=== PATIENT | female | born 1960 | race Caucasian/White ===

== ENCOUNTER 2018-06-03 09:40 | Emergency (ER) | payer OTHER ==
[~2018-06-03] VITALS: Ht 175.3 cm; Wt 99.8 kg
[2018-06-03] MEDS ORDERED: BYDUREON P2 MG/0.65 INJECTION (10:00)
[2018-06-03] MEDS ORDERED: ATORVASTATIN CA40 MG PO (10:01)
[2018-06-03] MEDS ORDERED: HUMALOG100 UNIT/1 SUBQ (10:01)
[2018-06-03] MEDS ORDERED: XANAX 0.5 MG0.5 MG PO (10:01)
[2018-06-03] MEDS ORDERED: BASAGLAR K100 UNIT/1 INJECTION (10:01)
[2018-06-03] MEDS ORDERED: PROTONIX40 M1 PO (10:02)
[2018-06-03] MEDS ORDERED: ASPIR 8181 MG PO (10:02)
[2018-06-03] MEDS ORDERED: FLEXERIL PO (10:02)
[2018-06-03] MEDS ORDERED: REQUIP 1 MG TABL1 M1 PO (10:02)
[2018-06-03] MEDS ORDERED: LOPRESSOR50 PO (10:02)
[2018-06-03] MEDS ORDERED: ZALEPLON 10 MG10 M1 PO (10:03)
[2018-06-03] MEDS ORDERED: MAGOX 400400 MG PO (10:03)
[2018-06-03] MEDS ORDERED: OMEGA-31000 M1 PO (10:04)
[2018-06-03] MEDS ORDERED: FEOSOL45 M1 PO (10:04)
[2018-06-03] MEDS ORDERED: CRANBERRY200 MG PO (10:05)
[2018-06-03] MEDS ORDERED: VITAMIN D3400 UNI2 PO (10:05)
[2018-06-03] MEDS ORDERED: HYDROCODON-ACE1 EAC5 PO (10:06)
[2018-06-03] MEDS ORDERED: PREDNISONE 20 M20 M1 PO (10:40)
[2018-06-03 10:49] VITALS: BP 154/64
== END 2018-06-03 10:49 | disposition home or self-care (01) ==
LOC: M.ERS 09:40
DX: R21 Rash and other nonspecific skin eruption (principal); T78.49XA Other allergy, initial encounter; I10 Essential (primary) hypertension; E11.9 Type 2 diabetes mellitus without complications; Z88.8 Allergy status to other drugs, medicaments and biological substances; Z88.1 Allergy status to other antibiotic agents; Z79.4 Long term (current) use of insulin; X58.XXXA Exposure to other specified factors, initial encounter

== ENCOUNTER 2018-11-12 09:48 | Inpatient (IN) | payer OTHER ==
[~2018-11-12] VITALS: Ht 172.7 cm; Wt 95.7 kg
[~2018-11-12 09:48] MED LIST: ASPIR 8181 MG PO; ATORVASTATIN CA40 MG PO; BASAGLAR K100 UNIT/1 INJECTION; BYDUREON P2 MG/0.65 INJECTION; CRANBERRY200 MG PO; FEOSOL45 M1 PO; FLEXERIL PO; HUMALOG100 UNIT/1 SUBQ; HYDROCODON-ACE1 EAC5 PO; LOPRESSOR50 PO; MAGOX 400400 MG PO; OMEGA-31000 M1 PO; PREDNISONE 20 M20 M1 PO; PROTONIX40 M1 PO; REQUIP 1 MG TABL1 M1 PO; VITAMIN D3400 UNI2 PO; XANAX 0.5 MG0.5 MG PO; ZALEPLON 10 MG10 M1 PO
--- NOTE | 2018-11-12 10:28 | NUR ---
PT AWARE OF PLAN OF CARE. WILL CONT TO MONITOR.
[2018-11-12 10:39] LABS: ABSOLUTE BASOPHILS 0.1 thou/uL (0.0-0.2); ABSOLUTE EOSINOPHILS 0.4 thou/uL (0.0-0.7); ABSOLUTE LYMPHOCYTES 3.4 thou/uL (0.8-5.3); ABSOLUTE MONOCYTES 1.1 thou/uL (0.0-1.2); ABSOLUTE NEUTROPHILS 6.2 thou/uL (1.6-8.1); BASOPHILS 0.8 %; EOSINOPHILS 3.4 %; HEMATOCRIT 34.5 % (37.0-47.0); HEMOGLOBIN 11.6 gm/dL (12.0-15.0); LYMPHOCYTES 30.2 %; MCH 27.6 pg (26.0-34.0); MCHC 33.6 g/dL (28.0-37.0); MCV 82.2 fL (80.0-100.0); MONOCYTES 9.6 %; MPV 7.4 fl. (7.2-11.1); NUCLEATED RBCS 0 /100WBC; PLATELET COUNT* 249 thou/uL (150-400); RDW-CV 16.4 % (10.5-14.5); WBC 11.1 thou/uL (4.0-11.0)
[2018-11-12 10:44] LABS: URINE BILIRUBIN NEGATIVE (Negative); URINE BLOOD 1+ (Negative); URINE CLARITY SL CLOUDY; URINE COLOR YELLOW; URINE GLUCOSE-RANDOM NEGATIVE (Negative); URINE KETONES NEGATIVE (Negative); URINE LEUKOCYTES-REFLEX 3+ (Negative); URINE NITRITE-REFLEX NEGATIVE (Negative); URINE PROTEIN 1+ (Negative); URINE UROBILINOGEN 0.2 E.U./dl (0.2-1.0)
[2018-11-12 10:47] LABS: CALCIUM 8.7 mg/dL (8.5-10.1); CREATININE 1.3 mg/dL (0.6-1.3); POTASSIUM 3.2 mmol/L (3.5-5.1)
[2018-11-12] MEDS ORDERED: BYDUREON B2 MG/0.85 INJECTION (10:47)
[2018-11-12 10:48] LABS: SQUAMOUS 0-3 Few /LPF (0-3); URINE RBC >20 Many /HPF (0-2); URINE WBC-REFLEX >25 Many /HPF (0-5)
[2018-11-12 10:49] LABS: CASTS None Seen /LPF (None Seen); CRYSTALS None Seen /LPF (None Seen); MUCUS None Seen strn/LPF (None Seen)
[2018-11-12 10:52] LABS: ALBUMIN 3.1 g/dL (3.4-5.0); TOTAL BILIRUBIN 0.8 mg/dL (<0.1-1.0); TOTAL PROTEIN 7.8 g/dL (6.4-8.2)
[2018-11-12 12:35] VITALS: BP 141/67
[2018-11-12 13:00] VITALS: BP 157/68
[2018-11-12 13:15] VITALS: BP 153/64
[2018-11-12 13:30] VITALS: BP 148/66
--- NOTE | 2018-11-12 18:00 | NUR ---
PATIENT ARRIVED TO UNIT AT APPROX 1300. ALERT AND ORIENTED X4. ADMISSION HISTORY AND ASSESSMENT COMPLETED AND CHARTED. VSS ON ROOM AIR. PATIENT HAD COMPLAINTS OF PAIN, MANAGED WITH IV MEDICATION. NO COMPLAINTS OF NAUSEA OR SOA. FLUIDS INFUSED ORDERED. ACCUCHECK DONE AND INSULIN GIVEN PER ORDERS. PODIATRY, DR GILES, CONSULTED AND WILL DO SURGERY TOMORROW AFTERNOON. WOUND PHOTO TAKEN AND PLACED IN CHART. PATIENT UP AD BEN IN THE ROOM AND TO THE BATHROOM. INSTRUCTED TO USE CALL LIGHT FOR NEEDS, PLACED IT IN RACXH AND PATIENT USES APPROPRIATELY. HOURLY ROUNDS COMPLETED. NURSING WILL CONTINUE TO MONITOR.
[2018-11-12 19:55] VITALS: BP 155/66
--- NOTE | 2018-11-13 04:14 | NUR ---
ASSUMED CARE AT START OF SHIFT PT RESTED WELL AFTER RECIEVING IV PAIN MEDICATION, REMAIN NPO FOR AM SURGERY OF TOE REMOVEL, DISCUSSED PLAN OF CARE VERBALIZED UNDERSTANDIING AND AGREEABLE, WILL REPORT CHANGES OR ABNORMAL FINDINGS
[2018-11-13 07:30] VITALS: BP 137/60
--- NOTE | 2018-11-13 10:43 | NUR ---
WOUND CARE NOTE: CONSULT RECEIVED FOR TOE INFECTION/RT SECOND TOE FRACTURE. PLANS FOR PATIENT TO HAVE AMPUTATION OF THIS TOE TODAY. WILL SIGN OFF. PLEASE RECONSULT IF ANY NEEDS ARISE.
--- NOTE | 2018-11-13 15:24 | EKG ---
[place] [address] ELECTROCARDIOGRAM REPORT Name: MEDARDO LOGAN Room: [address] ADM IN M.R.#: [id number] Admission: 11/12/18 Attend Phys: Crystal Lambert MD Discharge: Date of : 56 Report #: [id number] THIS REPORT FOR: //name// [facility] Test Date: 2018-11-13 Test Time: 13:51:30 Pat Name: MEDARDO LOGAN Department: Room: [address] Gender: F Organizational Consultant: : 1960 Requested By: Alek Poole Order Number: [id number] Bonny MD: Enzo Mcgee Measurements Intervals [place] Rate: 66 P: 37 WV: 158 QRS: 46 QRSD: 98 T: 35 QT: 443 QTc: 465 Interpretive Statements Sinus rhythm No previous ECG available for comparison Electronically Signed On 11-13-2018 15:24:32 INTERCHANGE AGENT by Enzo Mcgee [email or web address] <ELECTRONICALLY SIGNED> By: Enzo Mcgee MD, [facility] 11/13/18 1524 1351 1351 Enzo Mcgee MD, FACC /EPI
--- NOTE | 2018-11-13 17:43 | NUR ---
ASSUMED CARE OF PATIENT AT APPROX 0730. ALERT AND ORIENTED 4X. ASSESSMENT COMPLETED AND CHARTED. VSS ON ROOM AIR. NO COMPLAINTS OF NAUSEA OR SOA. PAIN MANAGED WITH MEDICATION. PATIENT TO PACU AT 1445 AND RETURNED AT 1645. RIGHT 2ND TOE AMPUTATION DONE. NWB ON RIGHT LOWER EXTREMITY. PATIENT REMAINED ALERT AND ORIENTED AND VITALS REMAINED STABLE. NO COMPLAINTS OF PAIN SINCE ARRIVAL BACK TO UNIT. PATIENT WILL BE UP WITH GAIT BELT AND WALKER WITH NWB STATUS. FAL LPRECAUTIONS IN PLACE. CALL LIGHT WITHIN REACH AND USES APPROPRIATELY. HOURLY ROUNDS COMPLETED WHILE ON UNIT. NURSING WILL CONTINUE TO MONITOR.
[2018-11-13 19:06] LABS: GLYCOHEMOGLOBIN (HGB A1C) 5.9 % (4.8-5.6)
[2018-11-13 20:00] VITALS: BP 144/64
[2018-11-14 00:28] VITALS: BP 127/54
[2018-11-14 04:18] VITALS: BP 156/63
[2018-11-14 05:02] LABS: HEMATOCRIT 29.1 % (37.0-47.0); MCH 28.5 pg (26.0-34.0); MCHC 34.3 g/dL (28.0-37.0); MPV 7.9 fl. (7.2-11.1); RBC 3.5 mil/uL (4.20-5.00); RDW-CV 16.4 % (10.5-14.5); WBC 4.3 thou/uL (4.0-11.0)
[2018-11-14 05:29] LABS: ALBUMIN 2.5 g/dL (3.4-5.0); CALCIUM 8.1 mg/dL (8.5-10.1); CREATININE 1.1 mg/dL (0.6-1.3); MAGNESIUM 1.4 mg/dL (1.8-2.4); POTASSIUM 3.8 mmol/L (3.5-5.1); TOTAL BILIRUBIN 0.6 mg/dL (<0.1-1.0); TOTAL PROTEIN 6.5 g/dL (6.4-8.2)
--- NOTE | 2018-11-14 05:49 | NUR ---
Alert and oriented x 4. Rt foot bulky dresing clean,dry and intact. She has followed nonweight bearing to rt foot very well. She up and pivot over to bedside commode. She did have a large BM last evening. She had pain meds x 2 this shift. Vitals are stable. She's on R/A. She has slept well this shift.
[2018-11-14 08:00] VITALS: BP 140/54
--- NOTE | 2018-11-14 13:09 | CON ---
[address] [address] CONSULTATION Name: MEDARDO LOGAN Room: [address] IN M.R.#: [id number] Admission: 11/12/18 Attend Phys: Crystal Lambert MD Discharge: Date of : 56 Report #: [id number] THIS REPORT FOR: //name// CC: Crystal Caban DATE OF SERVICE: 11/13/2018 ATTENDING PHYSICIAN: Dr. Lambert. REASON FOR EVALUATION: Chronic osteomyelitis involving the right second toe. HISTORY OF PRESENT ILLNESS: Chart reviewed, the patient examined. This is a 58-year-old female with diabetes mellitus diagnosed roughly 4 years ago, apparently has some degree of peripheral neuropathy, was unaware of any injury, but developed pain and inflammatory changes noted in particular in the second toe roughly 2 weeks prior. She apparently did have some degree of systemic illness with sweats and perhaps low-grade temperature elevations. She notes her blood sugars were not markedly abnormal. Denies significant pulmonary or gastrointestinal related complaints. Was evaluated including imaging which raised question of some fracture versus bone destruction. She is seen postop second toe amputation. She has been empirically placed on ceftriaxone and vancomycin. Cultures are pending. Initial blood cultures were negative at 24 hours. She denies significant amount of pain at this point. ALLERGIES: LORAZEPAM, CEPHALEXIN, WHICH SHE DESCRIBED CAUSES YEAST RELATED COMPLICATIONS. CURRENT MEDICATIONS: Include atorvastatin, cholecalciferol, fish oil, aspirin, ceftriaxone, ropinirole, vancomycin, cyclobenzaprine, insulin, metoprolol, alprazolam, pantoprazole. PAST MEDICAL HISTORY: Diabetes mellitus type 2, insulin requiring; history of hypertension. SOCIAL HISTORY: Nonsmoker, no ethanol. FAMILY HISTORY: Noncontributory. REVIEW OF SYSTEMS: Ten point review of systems otherwise unremarkable with the exception of noted above in history of present illness. PHYSICAL EXAMINATION: GENERAL: She is pleasant, alert, cooperative. She is slightly lethargic, although she appears to be generally lucid, in mild distress, appears to be [place] [address] CONSULTATION Name: MEDARDO LOGAN Room: [address]#: [id number] Admission: 11/12/18 Attend Phys: Crystal Lambert MD Discharge: Date of : 56 Report #: [id number] VITAL SIGNS: Temperature 98.2, pulse 78, respirations 18, blood pressure 137/60. SKIN: Warm, dry, no rashes. HEENT: Normocephalic. Extraocular muscles intact. Oropharynx without lesion. NECK: Supple. LUNGS: Clear to auscultation. HEART: Regular. I do not appreciate any murmur. ABDOMEN: Soft, nontender, nondistended, no peritoneal signs. EXTREMITIES: She has got a dressing on the right foot. GENITOURINARY: Deferred. RECTAL: Deferred. LABORATORY DATA: MRI of the foot preop showed nonenhancing soft tissue abscess or phlegmon within the distal tip of the second toe extending to plantar margin of the distal phalanx, multifocal cortical destruction and marrow signal alteration involving the second distal phalanx as well as the first proximal and distal phalanx, there is question of a traumatic fracture, sliding irregularity of the second metatarsal head, there is question of a chronic [place] infarction, reactive edema. Blood cultures are sterile thus far. Arterial Doppler was otherwise unremarkable on the right. Lactic acid 1.3. Electrolytes: Sodium 139, potassium 3.2, chloride 106, bicarb is 25, BUN and creatinine 18 and 1.3, glucose of 58. LFTs unremarkable. Albumin of 3.1, total protein 7.8, estimated GFR of 42. Urinalysis did show some marked pyuria and moderate bacteriuria. Blood cultures sterile thus far. Urine culture is pending as are operative cultures. ASSESSMENT: Suspected chronic osteomyelitis in the distal right second toe, is post amputation. Continue empiric antimicrobial therapy. Await results. Likely has a genitourinary tract infection as well, so a combination gram-positive, gram-negative coverage seems in order. To see how she does clinically over the course of the next 24-48 hours, await results. Continue wound care as per Dr. Poole. <ELECTRONICALLY SIGNED> By: Quirino Bennett MD 11/14/18 1309 1716 1810Jodannie Bennett MD /nt
--- NOTE | 2018-11-14 15:14 | NUR ---
SOLAR DESIGNER/INSTALLER SPOKE TO THE PATIENT TO DISCUSS HER HOME SITUATION, DISCHARGE PLANNING, AND TO INFORM OF THE ROLE OF CM. PATIENT ALERT, ORIENTED, AND INDEPENDENT WITH ADL'S. PATIENT WORKS AND DRIVES. PATIENT RESIDES AT HOME ALONE. PATIENT USES 0 DME. PATIENT HAS NO HX OF HH OR SNF. PATIENT INFORMS THAT SHE PLANS TO RETURN TO HER DTR'S HOME AT D/C IF SHE NEEDS ASSISTANCE WITH CARES. SPOKE TO THE PATIENT ABOUT THE POSSIBILITY OF NEEDING I.V. ABT'S AT D/C. PATIENT INFORMS THAT SHE WILL BE ABLE TO DO THE I.V. ABT INFUSIONS AT HER DTR'S HOME IF NEEDED. D/C FIELD TECHNICIAN SPOKE TO [employer] TO INFORM OF THE NEED TO CHECK PATIENT'S BENEFITS, AND FAXED THE PATIENT'S FACESHEET. D/C FIELD TECHNICIAN AWAITING A RETURN CALL FROM [employer] TO DISCUSS PATIENT'S INSURANCE COVERAGE FOR HOME INFUSIONS AND POSSIBLE CO-PAY AMOUNT. CM WILL REMAIN AVIALABEL TO ASSIST AND FOLLOW NEEDED.
[2018-11-14 16:21] VITALS: BP 122/47
--- NOTE | 2018-11-14 17:21 | NUR ---
CONSULTED TO PLACE PICC FOR NETWORK CONTROL SUPERVISOR ATB THERAPY. SPOKE WITH PT REGUARDING RISK AND BENEFIT. VOICED UNDERSTANDING AND DENIES QUESTIONS. CONSENT SIGNED. RIGHT UPPER ARM ASSESSED WITH ULTRASOUND. BASILIC VEIN IDENTIFIED ADN NOTED TO BE WUIDLEY PATENT. USING UTRASOUND AND MAX BARRIER PRECAUTIONS SINGLE LUMAN POWER PICC PLACED. LINE TRIMMED AT 47CM AND ADVANCED 46CM. GOOD BRIOSK BLOOD RETURN NOTED AND FLUSHED WITH EASY. TIP CONFERMATION PER RASHEED 3CG. LINE SECURED AND RELEASED FOR USE.
--- NOTE | 2018-11-14 18:53 | NUR ---
ALERT AND ORIENTED X4. UP WITH ASSIST X1 WITH WALKER AND GAIT BELT. PICC LINE PLACED TODAY, PATENT AND SALINE LOCKED. PAIN BEING MANAGED WITH PO PAIN MEDICATION. DENIES NAUESA. TOLERATING DIET. DRESSING ON LEFT FOOT IS C/D/I. VSS ON ROOM AIR. HOURLY ROUNDS HAVE BEEN MAINTAINED THROUGHOUT SHIFT. VSS ON ROOM AIR. CALL LIGHT IS WITHIN REACH. NURSING WILL CONTINUE TO MONITOR.
--- NOTE | 2018-11-14 19:55 | NUR ---
RN REVIEWED AND AGREES WITH STUDENT NURSES CHARTING
[2018-11-14 20:00] VITALS: BP 132/69
[2018-11-15] VITALS (7 sets, daily range): BP systolic 116–126; BP diastolic 40–58
--- NOTE | 2018-11-15 04:47 | NUR ---
Alert and oriented x 4. Bulky dressing to rt foot dry and intact, she is doing well pivoting over to the bedside commode, voiding well. She is on scheduled trmadol which has helped with pain control. Rt upper arm PICC line is working well,flushes well and has good draw back. Orders for RT and OT eval today. She has slept well this shift.
[2018-11-15 09:37] LABS: CALCIUM 8.6 mg/dL (8.5-10.1); CREATININE 1.2 mg/dL (0.6-1.3); MAGNESIUM 1.6 mg/dL (1.8-2.4)
[2018-11-15] MEDS ORDERED: HYDROCODON-ACE1 EAC7 PO (11:14)
[2018-11-15] MEDS ORDERED: TRAMADOL 50 MG50 MG PO (11:14)
[2018-11-15] MEDS ORDERED: ONDANSETRON HCL4 M2 PO (11:14)
--- NOTE | 2018-11-15 16:13 | NUR ---
CLOCKMAKER APPRENTICE SPOKE TO THE PATIENT TO DISCUSS DISCHARGE PLANNING NEEDS. PATIENT HOPEFUL TO D/C TODAY HOME WITH HH SERVICES, AND PLANS TO DO THE ABT INFUSIONS AT HER HOME. PATIENT INITIALLY WANTED TO DO THE INFUSIONS AT HER DTRS HOME HOWEVER THE HH DID NOT SERVICE THAT AREA. D/C COMPUTER SYSTEMS INFORMATION DIRECTOR ATTEMPED TO FIND ALTERNATE HH WITH [facility], [facility], [facility], [facility], [facility], [facility], AND [facility]. ALL WERE EITHER NOT IN-NETWORK, OUT OF SERVICE AREA, OR UNABLE TO START CARE UNITL NEXT SUNDAY. ON-CALL HH TO VISIT PATIENT AT HER HOME TO PROVIDE WOUND CARE AND ASSIST WITH IV ABT. NATHANIEL WITH [facility] DID ON-SITE VISIT WITH THE PATIENT AND DTR FOR ABT TEACHING. ABT'S TO BE DELIVERED TO THE PATIENT'S DTR'S HOME TONIGHT. PATIENT IN AGREEMENT WITH THE PLAN. P.T. PROVIDED PATIENT WITH A DONATED WALKER TO TAKE HOME AT D/C, THE PATIENT WAS UNABLE TO PURCHASE WALKER FROM [facility], [place] D/T INABILITY TO [place] CO-PAY AMOUNT. PATIENT TO D/C TODAY WITH TRANSPORT PROVIDED BY HER DTR [facility] ([phone]). CM WILL REMAIN AVAILABLE TO ASSIST AND FOLLOW NEEDED. [facility] [phone] ON-CALL HOME HEALTH ([facility]) [phone]
--- NOTE | 2018-11-15 17:25 | NUR ---
PATIENT LEFT UNIT AT 1645. ALERT AND ORIENTED X4. UP WITH STAND BY ASSIST X1 WITH WALKER AND GAIT BELT. PICC IN PLACE AT DISCHARGE. PAIN BEING MANAGED WITH PO PAIN MEDICATION. DENIES NAUSEA. DRESSING IS C/D/I. WEIGHT BEARING TOLERATED IN SURGICAL SHOE. ATTENDED PHYSICAL THERAPY THIS SHIFT. TOLERATING DIET. ALL PERSONAL ITEMS LEFT WITH PATIENT. DISCHARGE INSTRCTIONS, FOLLOW UP INFORMATION, PRESCRIPTIONS, AND NEW MEDICATION INFORMATION SENT WITH PATIENT. VSS ON ROOM AIR. HOURLY ROUNDS HAVE BEEN MAINTAINED THROUGHOUT SHIFT. LEFT WITH DAUGHTER VIA CAR.
--- NOTE | 2018-11-15 19:01 | NUR ---
RN HAS REVIEWED AND AGREES WITH STUDENT NURSES CHARTING.
--- NOTE | 2018-11-16 08:02 | OP ---
[address] [address] OPERATIVE REPORT Name: LOGANCARLTONBLAYNE Zafar Room: [address] M.R.#: [id number] Admission: 11/12/18 Attend Phys: Crystal Lambert MD Discharge: 11/15/18 Date of : 56 Report #: [id number] THIS REPORT FOR: //name// CC: Crystal Caban DATE OF SERVICE: 11/13/2018 SURGEON: Alek Poole DPM PREOPERATIVE DIAGNOSES: Osteomyelitis, right second digit, with nonhealing ulceration. POSTOPERATIVE DIAGNOSES: Osteomyelitis, right second digit, with nonhealing ulceration. PROCEDURE: 1. Amputation, right second toe at MTP joint with primary closure. 2. Incision and drainage, right foot. 3. Skin plasty, left foot. ANESTHESIA: General LMA. INJECTABLES: 30 mL of a 1:1 mixture of 0.5% Marcaine plain and 1% lidocaine plain. ESTIMATED BLOOD LOSS: Minimal. HEMOSTASIS: Right ankle pneumatic tourniquet at 250 mmHg. SUTURES: 3-0 nylon. COMPLICATIONS: None CULTURES: 1. Bone, left second digit, aerobic and anaerobic. 2. Soft tissue, left second digit, aerobic and anaerobic. PATHOLOGY: Left second toe. DESCRIPTION OF PROCEDURE: The patient was brought to the OR and placed on the table supine with induction of general LMA anesthesia. A well-padded right ankle tourniquet was placed. A local anesthetic block was given, and the extremity was prepped and draped aseptically. After exsanguination and inflation of the tourniquet, a tennis racquet incision was created circumferentially around the right second toe. Layered anatomic dissection [place] [id number] OPERATIVE REPORT Name: MEDARDO LOGAN Room: [address] IN [facility].#: [id number] Admission: 11/12/18 Attend Phys: Crystal Lambert MD Discharge: 11/15/18 Date of : 56 Report #: [id number] utilized to disarticulate the toe at the second MTP joint, electrocautery was utilized for hemostasis. The intraoperative wound was debulked of tendons and soft tissue to facilitate closure. There were no signs of necrosis or infection at the level of the second MTP joint or second metatarsal head. I remodeled the skin and it was closed primarily with 3-0 nylon in simple interrupted fashion. The tourniquet was deflated with normal vascular return. A sterile compressive bandage with Betadine-soaked Adaptic, 4 x 4s, ABD, Kerlix and Coban were applied. A portion of bone was sent for aerobic and anaerobic cultures, as well as associated soft tissue from the ulceration. The second toe was then sent for gross pathology. The patient left the OR with no complications noted. <ELECTRONICALLY SIGNED> By: Alek Poole DPM 11/16/18 0802 0741 0752Dbob Poole DPM /nano
--- NOTE | 2018-11-16 08:02 | CON ---
[address] [address] CONSULTATION Name: LOGANCARLTONBLAYNE Zafar Room: [address] IN M.R.#: [id number] Admission: 11/12/18 Attend Phys: Crystal Lambert MD Discharge: 11/15/18 Date of : 56 Report #: [id number] THIS REPORT FOR: //name// CC: Crystal Caban Primary Care Physician DATE OF SERVICE: 11/12/2018 REASON FOR CONSULTATION: Ulceration, right distal second toe with osteomyelitis. CHIEF COMPLAINT AND HISTORY OF PRESENT ILLNESS: The patient is a 58-year-old female admitted to the Emergency Room today for worsening infection of the right second toe. She has type 2 diabetes mellitus with peripheral neuropathy. She first noticed a wound to the right distal toe roughly 1 week ago, that has become increasingly red, swollen and painful, with some drainage at the distal aspect. She has been afebrile. Denies fevers, chills, nausea or malaise. She says her blood glucoses typically run in the mid-150s. She denies trauma to the toe; she thinks it may have rubbed a blister or callus from the end of her shoe. She had aerobic and anaerobic swab cultures today, pending. She had foot radiographs, which show destruction of the terminal phalanx of the right second toe. There is an old fracture through the proximal phalanx of the right hallux. MRI was performed, report pending. Arterial Doppler ultrasound showed strong triphasic waveforms to both lower extremities, with no signs of focal velocity, elevation or stenosis. LABORATORY DATA: WBC is 11.1, RBC 4.20, hemoglobin 11.6, hematocrit 34.5 and platelets 249,000. BUN 18, creatinine 1.3 and glucose 58. Albumin 3.1. PHYSICAL EXAMINATION: The right second toe is extremely edematous and inflamed, with obvious deep tissue infection. There is an ulceration of the distal aspect of the second toe that probes down to the distal phalanx. There is scant serous drainage present. She has palpable dorsalis pedis and posterior tibial pulses bilaterally. There is advanced edema to the right lower extremity and dorsal foot from the cellulitis. She has a hallux extensus deformity to the right great toe, with no open wound or signs of infection to it. Toenails are dystrophic, without paronychia. No popliteal adenopathy to either extremity. No Homans' or Willis sign. IMPRESSION: Osteomyelitis, right second toe, distal phalanx, complicated by type 2 diabetes mellitus with peripheral neuropathy. PLAN: The patient requires surgical amputation [place] [address] CONSULTATION Name: MEDARDO LOGAN Room: [address] IN M.R.#: [id number] Admission: 11/12/18 Attend Phys: Crystal Lambert MD Discharge: 11/15/18 Date of : 56 Report #: [id number] perform the surgery tomorrow, n.p.o. past midnight. I will review MRI and culture results tomorrow. <ELECTRONICALLY SIGNED> By: Alek Poole DPM 11/16/18 0802 1729 [id number] Poole DPM /nt
--- NOTE | 2018-11-16 08:02 | CON ---
[address] [address] CONSULTATION Name: MEDARDO LOGAN Room: [address] IN M.R.#: [id number] Admission: 11/12/18 Attend Phys: Crystal Lambert MD Discharge: 11/15/18 Date of : 56 Report #: [id number] THIS REPORT FOR: //name// CC: Crystal Caban DATE OF SERVICE: 11/13/2018 CHIEF COMPLAINT: Follow up regarding osteomyelitis of the right second toe, distal phalanx, complicated by type 2 diabetes mellitus with peripheral neuropathy. HISTORY OF PRESENT ILLNESS: She had an MRI with contrast, which showed diffuse osteomyelitis to the distal phalanx with a secondary fracture due to osteolysis. There is also increased signal uptake to the proximal phalanx of the right hallux, likely secondary to traumatic fracture. Clinically, the patient does not have any wounds or inflammation to the area, although she does have a remote history of ulceration of the plantar medial aspect of the hallux. I feel this likely represents a remote fracture based on the x-ray, MRI and clinical findings. She has good appetite, relates decreased pain to the right foot. Blood cultures have no growth x 2. Wound culture from right second toe is pending. No new labs for review. PHYSICAL EXAMINATION: The right second toe was dressed with no bleed through or drainage. There is decreased swelling and inflammation at the dorsal aspect of the right foot. PLAN: I did not remove the bandage to examine the wound, since the patient is scheduled for digital amputation later this afternoon. I will plan amputation, right second toe with primary closure at the MTP joint. No surgical debridement or amputation is required to the right great toe, as there are no clinical signs of infection, and the bone pathology is almost certainly remote pathologic fracture. <ELECTRONICALLY SIGNED> By: Alek Poole DPM 11/16/18 0802 1250 1308Dajasmyne Poole DPM /nt
--- NOTE | 2018-11-18 13:08 | PATH ---
[address] [address] PATHOLOGY RPT PROCEDURE Name: MEDARDO LOGAN Room: [address] IN .R.#: [id number] Admission: 11/12/18 Date of : 56 Discharge: 11/15/18 Report #: [id number] Path Case #: [id number] [facility] Accession Number: [id number] . 01 Material submitted: . RIGHT SECOND TOE . 01 Clinical history: . Osteomyelitis second toe . 02 Diagnosis: Right second toe: - Benign toe with prominent defect in region of nonspecific ulceration, acute inflammation of soft tissues and osteomyelitis of underlying phalangeal bone. - Proximal disarticulation margin free of osteomyelitis. (SANDRA:alexander; 11/15/2018) MBKimberlee/11/15/2018 . 02 Electronically signed: . Richmond Barth MD, Pathologist NPI- [id number] . 01 Gross description: . The specimen is received in formalin, labeled "Medardo Logan, right second toe". Received is an amputated digit measuring 6.9 x 2.9 x 2.7 cm in greatest dimensions. The bone margin is smooth and concave in appearance, consistent with disarticulation. The bone and soft tissue margins are inked black. The nail is present displaying a light younger and grossly unremarkable appearance. The distal aspect of the specimen displays a circular defect measuring 1.5 x 1.2 cm which probes to a depth of 1.3 cm and exposes the underlying bone. The skin surrounding this defect is light younger and flaky in appearance. A full-thickness longitudinal cross-section is submitted in cassettes A1 through A3, from proximal to distal aspects, following decalcification. (CAA; 11/14/2018) QAC/QAC . 02 Pathologist provided ICD-10: L97.519, M86.8X7 . 02 CPT . 606898, 698745 Specimen Comment: A courtesy copy of this report has been sent to Specimen Comment: [phone], , . Specimen Comment: Report sent to Specimen Comment: A duplicate report has been generated [place] [address] PATHOLOGY RPT PROCEDURE Name: MEDARDO LOGAN Room: [address] IN M.R.#: [id number] Admission: 11/12/18 Date of : 56 Discharge: 11/15/18 Report #: [id number] Path Case #: [id number] Performed at: 01 [facility] [place] [address] [address], [place], [place] [address] MD Varun Dave MD Phone: [phone] Performed at: 02 [facility] [address], [place], [place] [address] MD Richmond Barth MD Phone: [phone]
--- NOTE | 2018-11-19 10:26 | NUR ---
POST DISCHARGE NOTE: D/C ANODE BUILDER CONTACTED BY NIYA WITH ON-CALL CARE SERVICES. NIYA INFORMS THAT THE HH HAS MADE MULTIPLE ATTEMPTS TO CONTACT THE PATIENT TO ARRANGE VISIT TO [facility]. APPOINTMENT HAD BEEN SET FOR SUNDAY, SUNDAY, AND SUNDAY TO ADMIT THE PATIENT FOR SERVICE AND WHEN THE RN ARRIVES AT THE PATIENT'S HOME SHE IS NOT AVIALABLE. AT THIS TIME ON-CALL HH IS UNABLE TO ADMIT THE PATIENT DUE TO THE PATIENT NOT BEING AVAILABLE DESPITE MULTIPLE ATTEMPTS TO CONTACT THE PATIENT. NIYA ALSO INFORMS THAT SHE HAD CONTACTED DR BOOKER'S OFFICE TO INFORM OF THIS INFO WELL. D/C ANODE BUILDER TO INFORM DR BOOKER OF THIS INFO. CM WILL REMAIN AVAILABLE TO ASSIST AND FOLLOW NEEDED.
== END 2018-11-15 16:45 | disposition home or self-care (01) | DRG 617 ==
LOC: M.ERS 09:48 → M.ORTHSURG 12:00 → M.TBA-ER 12:00 → M.ORTHSURG 12:12
PROVIDERS: Nurse Practitioner Family; ADMIT Internal Medicine
DX: E11.69 Type 2 diabetes mellitus with other specified complication (principal); N39.0 Urinary tract infection, site not specified; M84.478A Pathological fracture, left toe(s), initial encounter for fracture; M86.9 Osteomyelitis, unspecified; L03.115 Cellulitis of right lower limb; E44.1 Mild protein-calorie malnutrition; E11.628 Type 2 diabetes mellitus with other skin complications; I10 Essential (primary) hypertension; E11.42 Type 2 diabetes mellitus with diabetic polyneuropathy; Z88.8 Allergy status to other drugs, medicaments and biological substances; Z79.899 Other long term (current) drug therapy; Z68.32 Body mass index [BMI] 32.0-32.9, adult

== ENCOUNTER 2018-12-10 11:11 | Emergency (ER) | payer OTHER ==
[~2018-12-10] VITALS: Ht 175.3 cm; Wt 98.2 kg
[~2018-12-10 11:11] MED LIST changes: +BYDUREON B2 MG/0.85 INJECTION; +HYDROCODON-ACE1 EAC7 PO; +ONDANSETRON HCL4 M2 PO; +TRAMADOL 50 MG50 MG PO
[2018-12-10 11:42] LABS: URINE BILIRUBIN NEGATIVE (Negative); URINE BLOOD 2+ (Negative); URINE CLARITY CLEAR; URINE COLOR YELLOW; URINE GLUCOSE-RANDOM 1+ (Negative); URINE KETONES NEGATIVE (Negative); URINE LEUKOCYTES-REFLEX 1+ (Negative); URINE NITRITE-REFLEX NEGATIVE (Negative); URINE PROTEIN 1+ (Negative); URINE SPECIFIC GRAVITY 1.025 (1.005-1.030); URINE UROBILINOGEN 0.2 E.U./dl (0.2-1.0)
[2018-12-10 11:49] LABS: AMP/METHAMP Negative (Negative); BARBITURATES Negative (Negative); BENZODIAZEPINES POSITIVE (Negative); COCAINE Negative (Negative); METHADONE Negative (Negative); OPIATES Negative (Negative); PCP Negative (Negative); THC Negative (Negative)
[2018-12-10 11:53] LABS: SQUAMOUS 0-3 Few /LPF (0-3)
[2018-12-10 11:54] LABS: BACTERIA-REFLEX 1-9 Few /HPF (None Seen); CASTS None Seen /LPF (None Seen); CRYSTALS None Seen /LPF (None Seen); MUCUS 0-3 Light strn/LPF (None Seen); URINE RBC 3-10 Few /HPF (0-2); URINE WBC-REFLEX 6-15 Few /HPF (0-5)
[2018-12-10 12:21] LABS: ABSOLUTE BASOPHILS 0.1 thou/uL (0.0-0.2); ABSOLUTE EOSINOPHILS 0.3 thou/uL (0.0-0.7); ABSOLUTE LYMPHOCYTES 1.1 thou/uL (0.8-5.3); ABSOLUTE MONOCYTES 0.4 thou/uL (0.0-1.2); ABSOLUTE NEUTROPHILS 3.7 thou/uL (1.6-8.1); BASOPHILS 1.8 %; EOSINOPHILS 5.4 %; HEMATOCRIT 35.8 % (37.0-47.0); HEMOGLOBIN 12.1 gm/dL (12.0-15.0); LYMPHOCYTES 19.9 %; MCH 28.6 pg (26.0-34.0); MCHC 33.9 g/dL (28.0-37.0); MCV 84.2 fL (80.0-100.0); MONOCYTES 7.9 %; NUCLEATED RBCS 0 /100WBC; PLATELET COUNT* 141 thou/uL (150-400); RBC 4.24 mil/uL (4.20-5.00); RDW-CV 17.1 % (10.5-14.5); WBC 5.6 thou/uL (4.0-11.0)
[2018-12-10 12:27] LABS: CALCIUM 9.5 mg/dL (8.5-10.1); CREATININE 1.2 mg/dL (0.6-1.3); POTASSIUM 3.4 mmol/L (3.5-5.1)
[2018-12-10 12:32] LABS: ALBUMIN 3.3 g/dL (3.4-5.0); TOTAL BILIRUBIN 0.9 mg/dL (<0.1-1.0); TOTAL PROTEIN 8.2 g/dL (6.4-8.2)
[2018-12-10 13:45] VITALS: BP 151/89
[2018-12-10 23:09] LABS: GLYCOHEMOGLOBIN (HGB A1C) 6.9 % (4.8-5.6)
== END 2018-12-10 13:46 | disposition home or self-care (01) ==
LOC: M.ERS 11:11
PROVIDERS: Personal Emergency Response Attendant
DX: E11.65 Type 2 diabetes mellitus with hyperglycemia (principal); F32.9 Major depressive disorder, single episode, unspecified; I10 Essential (primary) hypertension; E78.5 Hyperlipidemia, unspecified; Z90.49 Acquired absence of other specified parts of digestive tract; Z98.890 Other specified postprocedural states; Z88.1 Allergy status to other antibiotic agents; Z88.8 Allergy status to other drugs, medicaments and biological substances

== ENCOUNTER 2018-12-21 09:22 | Emergency (ER) | payer OTHER ==
[~2018-12-21] VITALS: Ht 175.3 cm; Wt 99.8 kg
[2018-12-21] MEDS ORDERED: LEXAPRO20 MG PO (09:39)
[2018-12-21 11:39] VITALS: BP 119/50
== END 2018-12-21 11:41 | disposition home or self-care (01) ==
LOC: M.ERS 09:22
DX: T82.898A Other specified complication of vascular prosthetic devices, implants and grafts, initial encounter (principal); I10 Essential (primary) hypertension; E11.9 Type 2 diabetes mellitus without complications; E78.5 Hyperlipidemia, unspecified; Z98.890 Other specified postprocedural states; Z79.4 Long term (current) use of insulin; Z90.49 Acquired absence of other specified parts of digestive tract; Z88.1 Allergy status to other antibiotic agents; Z88.8 Allergy status to other drugs, medicaments and biological substances; Z89.421 Acquired absence of other right toe(s); Y84.8 Other medical procedures as the cause of abnormal reaction of the patient, or of later complication, without mention of misadventure at the time of the procedure; Y92.89 Other specified places as the place of occurrence of the external cause

== ENCOUNTER 2019-02-20 12:52 | Emergency (ER) | payer OTHER ==
[~2019-02-20] VITALS: Ht 175.3 cm; Wt 102.1 kg
[~2019-02-20 12:52] MED LIST changes: +LEXAPRO20 MG PO
[2019-02-20] MEDS ORDERED: LEXAPRO 10 MG T10 M1 PO (13:07)
[2019-02-20] MEDS ORDERED: ACYCLOVIR 800800 MG PO (13:21)
[2019-02-20] MEDS ORDERED: VISTARIL 25 MG25 M1 PO (13:21)
[2019-02-20 13:30] VITALS: BP 176/86
== END 2019-02-20 13:32 | disposition home or self-care (01) ==
LOC: M.ERS 12:52
DX: B02.9 Zoster without complications (principal); I10 Essential (primary) hypertension; E11.9 Type 2 diabetes mellitus without complications; E78.5 Hyperlipidemia, unspecified; F32.9 Major depressive disorder, single episode, unspecified; Z90.49 Acquired absence of other specified parts of digestive tract; Z98.890 Other specified postprocedural states; Z88.1 Allergy status to other antibiotic agents; Z88.8 Allergy status to other drugs, medicaments and biological substances

== ENCOUNTER 2019-04-20 15:55 | Inpatient (IN) | payer OTHER ==
[~2019-04-20] VITALS: Ht 152.4 cm; Wt 101.2 kg
[~2019-04-20 15:55] MED LIST changes: +ACYCLOVIR 800800 MG PO; +LEXAPRO 10 MG T10 M1 PO; +VISTARIL 25 MG25 M1 PO
[2019-04-20 16:03] VITALS: BP 202/89
[2019-04-20 16:17] LABS: URINE BILIRUBIN NEGATIVE (Negative); URINE BLOOD 3+ (Negative); URINE CLARITY SL CLOUDY; URINE COLOR YELLOW; URINE GLUCOSE-RANDOM 1+ (Negative); URINE KETONES NEGATIVE (Negative); URINE NITRITE-REFLEX NEGATIVE (Negative); URINE PROTEIN 2+ (Negative); URINE UROBILINOGEN 0.2 E.U./dl (0.2-1.0)
[2019-04-20 16:18] LABS: URINE LEUKOCYTES-REFLEX 3+ (Negative)
[2019-04-20 16:24] LABS: MUCUS None Seen strn/LPF (None Seen); SQUAMOUS 4-10 Moderate /LPF (0-3); WBC CLUMPS Few (None Seen)
[2019-04-20 16:25] LABS: URINE WBC-REFLEX >25 Many /HPF (0-5)
[2019-04-20 16:26] LABS: BACTERIA-REFLEX 1-9 Few /HPF (None Seen); CASTS None Seen /LPF (None Seen); CRYSTALS None Seen /LPF (None Seen)
[2019-04-20 16:39] LABS: ABSOLUTE EOSINOPHILS 0.1 thou/uL (0.0-0.7); ABSOLUTE MONOCYTES 0.3 thou/uL (0.0-1.2); ABSOLUTE NEUTROPHILS 2.8 thou/uL (1.6-8.1); BASOPHILS 1.1 %; EOSINOPHILS 2.1 %; HEMOGLOBIN 12.5 gm/dL (12.0-15.0); LYMPHOCYTES 24.1 %; MCH 29.1 pg (26.0-34.0); MCHC 34.6 g/dL (28.0-37.0); MONOCYTES 7.2 %; MPV 7.7 fl. (7.2-11.1); NUCLEATED RBCS 0 /100WBC; PLATELET COUNT* 119 thou/uL (150-400); POLYS 65.5 %; RBC 4.29 mil/uL (4.20-5.00); RDW-CV 15.5 % (10.5-14.5); WBC 4.3 thou/uL (4.0-11.0)
[2019-04-20 16:45] LABS: CALCIUM 8.5 mg/dL (8.5-10.1); POTASSIUM 3.4 mmol/L (3.5-5.1)
[2019-04-20 16:49] LABS: ALBUMIN 3.1 g/dL (3.4-5.0); TOTAL BILIRUBIN 1.1 mg/dL (<0.1-1.0); TOTAL PROTEIN 7.1 g/dL (6.4-8.2)
[2019-04-20 20:00] VITALS: BP 162/72
[2019-04-20 20:52] VITALS: BP 161/74
[2019-04-21 04:00] VITALS: BP 108/60; BP 195/79
[2019-04-21 08:00] VITALS: BP 173/78
[2019-04-21 19:40] VITALS: BP 162/79
[2019-04-22 03:46] VITALS: BP 106/64
[2019-04-22 05:23] LABS: ABSOLUTE LYMPHOCYTES 1.1 thou/uL (0.8-5.3); ABSOLUTE NEUTROPHILS 3.2 thou/uL (1.6-8.1); BASOPHILS 0.7 %; HEMOGLOBIN 11.4 gm/dL (12.0-15.0); PLATELET COUNT* 111 thou/uL (150-400)
[2019-04-22 05:28] LABS: ABSOLUTE EOSINOPHILS 0.2 thou/uL (0.0-0.7); ABSOLUTE MONOCYTES 0.4 thou/uL (0.0-1.2); EOSINOPHILS 3.2 %; LYMPHOCYTES 22.9 %; MCHC 34.5 g/dL (28.0-37.0); MCV 83.9 fL (80.0-100.0); MONOCYTES 8.2 %; MPV 7.9 fl. (7.2-11.1); NUCLEATED RBCS 0 /100WBC; RBC 3.93 mil/uL (4.20-5.00); RDW-CV 15.1 % (10.5-14.5); WBC 4.9 thou/uL (4.0-11.0)
[2019-04-22 05:31] LABS: CALCIUM 8.3 mg/dL (8.5-10.1); MAGNESIUM 1.4 mg/dL (1.8-2.4); POTASSIUM 3.8 mmol/L (3.5-5.1)
[2019-04-22 08:17] VITALS: BP 129/66
[2019-04-22 12:00] VITALS: BP 152/67
[2019-04-22 20:00] VITALS: BP 162/66
[2019-04-23 03:58] LABS: ABSOLUTE EOSINOPHILS 0.1 thou/uL (0.0-0.7); ABSOLUTE LYMPHOCYTES 1.1 thou/uL (0.8-5.3); ABSOLUTE MONOCYTES 0.4 thou/uL (0.0-1.2); ABSOLUTE NEUTROPHILS 2.8 thou/uL (1.6-8.1); BASOPHILS 0.8 %; EOSINOPHILS 2.7 %; HEMATOCRIT 31.1 % (37.0-47.0); HEMOGLOBIN 10.9 gm/dL (12.0-15.0); LYMPHOCYTES 24.7 %; MCH 29.5 pg (26.0-34.0); MCHC 35.1 g/dL (28.0-37.0); MCV 84.3 fL (80.0-100.0); MONOCYTES 9.2 %; MPV 8.4 fl. (7.2-11.1); NUCLEATED RBCS 0 /100WBC; PLATELET COUNT* 98 thou/uL (150-400); POLYS 62.6 %; RBC 3.69 mil/uL (4.20-5.00); RDW-CV 14.6 % (10.5-14.5); WBC 4.5 thou/uL (4.0-11.0)
[2019-04-23 04:11] LABS: CALCIUM 7.8 mg/dL (8.5-10.1); POTASSIUM 3.8 mmol/L (3.5-5.1)
[2019-04-23 07:40] VITALS: BP 163/66
[2019-04-23] MEDS ORDERED: BACTRIM DS TAB1 EACH PO (11:50)
[2019-04-23] MEDS ORDERED: HYDROCODON-ACE1 EAC7 PO (11:51)
[2019-04-23] MEDS ORDERED: DOK PLUS TABLE1 EACH PO (11:51)
[2019-04-23 13:43] VITALS: BP 163/66
== END 2019-04-23 14:30 | disposition home or self-care (01) | DRG 690 ==
LOC: M.ERS 15:55 → M.2W 18:53 → M.TBA-ER 18:53 → M.2W 20:26 → M.ORTHSURG 04-22 20:54
PROVIDERS: Family Medicine; Nurse Practitioner Family; Physician Assistant; ADMIT Internal Medicine
DX: N12 Tubulo-interstitial nephritis, not specified as acute or chronic (principal); N20.0 Calculus of kidney; E78.5 Hyperlipidemia, unspecified; F32.9 Major depressive disorder, single episode, unspecified; R91.1 Solitary pulmonary nodule; R31.0 Gross hematuria; N18.3 Chronic kidney disease, stage 3 (moderate); E11.22 Type 2 diabetes mellitus with diabetic chronic kidney disease; E11.65 Type 2 diabetes mellitus with hyperglycemia; I12.9 Hypertensive chronic kidney disease with stage 1 through stage 4 chronic kidney disease, or unspecified chronic kidney disease; I72.8 Aneurysm of other specified arteries; Z60.2 Problems related to living alone; Z89.421 Acquired absence of other right toe(s); Z98.891 History of uterine scar from previous surgery; Z90.49 Acquired absence of other specified parts of digestive tract; Z79.899 Other long term (current) drug therapy; Z79.4 Long term (current) use of insulin; Z79.82 Long term (current) use of aspirin; Z88.8 Allergy status to other drugs, medicaments and biological substances; Z87.442 Personal history of urinary calculi

== ENCOUNTER 2020-01-13 12:01 | Emergency (ER) | payer OTHER ==
[~2020-01-13] VITALS: Ht 175.3 cm; Wt 96.6 kg
[~2020-01-13 12:01] MED LIST changes: +BACTRIM DS TAB1 EACH PO; +DOK PLUS TABLE1 EACH PO
[2020-01-13] MEDS ORDERED: METFORMIN HCL500 M3 PO (12:15)
[2020-01-13 12:34] LABS: INFLUENZA A ANTIGEN Negative (Negative)
[2020-01-13 12:43] LABS: URINE BILIRUBIN NEGATIVE (Negative); URINE BLOOD NEGATIVE (Negative); URINE CLARITY CLEAR; URINE COLOR YELLOW; URINE GLUCOSE-RANDOM NEGATIVE (Negative); URINE KETONES TRACE (Negative); URINE LEUKOCYTES-REFLEX NEGATIVE (Negative); URINE NITRITE-REFLEX NEGATIVE (Negative); URINE PROTEIN TRACE (Negative); URINE SPECIFIC GRAVITY >= 1.030 (1.005-1.030); URINE UROBILINOGEN 0.2 E.U./dl (0.2-1.0)
[2020-01-13] MEDS ORDERED: LOMOTIL TABLET1 EACH PO (12:51)
[2020-01-13] MEDS ORDERED: ONDANSETRON HCL4 M2 PO ×2 (12:51→12:52)
[2020-01-13 13:02] VITALS: BP 144/68
== END 2020-01-13 13:02 | disposition home or self-care (01) ==
LOC: M.ERS 12:01
PROVIDERS: Nurse Practitioner Family
DX: J10.1 Influenza due to other identified influenza virus with other respiratory manifestations (principal); I13.10 Hypertensive heart and chronic kidney disease without heart failure, with stage 1 through stage 4 chronic kidney disease, or unspecified chronic kidney disease; E11.22 Type 2 diabetes mellitus with diabetic chronic kidney disease; N18.3 Chronic kidney disease, stage 3 (moderate); E78.5 Hyperlipidemia, unspecified; Z79.4 Long term (current) use of insulin; Z87.442 Personal history of urinary calculi; Z98.890 Other specified postprocedural states; Z88.8 Allergy status to other drugs, medicaments and biological substances; Z90.49 Acquired absence of other specified parts of digestive tract

== ENCOUNTER 2020-08-12 12:54 | Emergency (ER) | payer OTHER ==
[~2020-08-12] VITALS: Ht 175.3 cm; Wt 95.3 kg
[~2020-08-12 12:54] MED LIST changes: +LOMOTIL TABLET1 EACH PO; +METFORMIN HCL500 M3 PO
[2020-08-12] MEDS ORDERED: WELLBUTRIN SR150 M1 PO (13:22)
[2020-08-12] MEDS ORDERED: TRULICITY0.75 MG/0. SUBQ (13:22)
[2020-08-12] MEDS ORDERED: NOVOLOG100 UNIT/M SUBQ (13:24)
[2020-08-12] MEDS ORDERED: BASAGLAR K100 UNIT/1 SUBQ (13:26)
[2020-08-12 15:20] VITALS: BP 157/74
== END 2020-08-12 15:21 | disposition home or self-care (01) ==
LOC: M.ERS 12:54
DX: M23.303 Other meniscus derangements, unspecified medial meniscus, right knee (principal); I12.9 Hypertensive chronic kidney disease with stage 1 through stage 4 chronic kidney disease, or unspecified chronic kidney disease; E11.22 Type 2 diabetes mellitus with diabetic chronic kidney disease; N18.30 Chronic kidney disease, stage 3 unspecified; E78.5 Hyperlipidemia, unspecified; Z98.890 Other specified postprocedural states; Z79.899 Other long term (current) drug therapy; Z79.4 Long term (current) use of insulin; Z88.1 Allergy status to other antibiotic agents; Z88.8 Allergy status to other drugs, medicaments and biological substances; Z90.49 Acquired absence of other specified parts of digestive tract

== ENCOUNTER 2021-05-28 00:41 | Emergency (ER) | payer OTHER ==
[~2021-05-28] VITALS: Ht 175.3 cm; Wt 102.1 kg
[~2021-05-28 00:41] MED LIST changes: +BASAGLAR K100 UNIT/1 SUBQ; +NOVOLOG100 UNIT/M SUBQ; +TRULICITY0.75 MG/0. SUBQ; +WELLBUTRIN SR150 M1 PO
[2021-05-28 02:24] VITALS: BP 244/95
[2021-05-28] MEDS ORDERED: MELOXICAM15 MG PO (03:05)
[2021-05-28] MEDS ORDERED: ENDOCET 7.5-321 EACH PO (03:05)
--- NOTE | 2021-05-28 10:33 | EKG ---
[place] [address] ELECTROCARDIOGRAM REPORT Name: MEDARDO LOGAN Room: [facility]#: [id number] Admission: 05/28/21 Attend Phys: Discharge: Date of : 56 Date of Service: 05/28/21 0200 Report #: [id number] THIS REPORT FOR: //name// [facility] ED Test Date: 2021-05-28 Test Time: 02:00:35 Pat Name: MEDARDO LOGAN Department: Room: Gender: F Carpenter Ship: : 1960 Requested By: Jazzy Lundberg Order Number: [id number] MD: Enzo Mcgee Measurements Intervals [place] Rate: 83 P: 12 ME: 136 QRS: 34 QRSD: 102 T: 109 QT: 387 QTc: 455 Interpretive Statements Sinus rhythm Ventricular premature complex Borderline repolarization abnormality Compared to ECG 11/13/2018 13:51:30 Ventricular premature complex(es) now present Electronically Signed On 05-28-2021 10:33:32 CDT by Enzo Mcgee [email or web address] <ELECTRONICALLY SIGNED> By: Enzo Mcgee MD, [facility] 05/28/21 1033 0200 0200 Enzo Mcgee MD, [facility] /EPI
== END 2021-05-28 05:28 | disposition home or self-care (01) ==
LOC: M.ERS 00:41
DX: S42.292A Other displaced fracture of upper end of left humerus, initial encounter for closed fracture (principal); I10 Essential (primary) hypertension; E11.9 Type 2 diabetes mellitus without complications; E78.5 Hyperlipidemia, unspecified; Z88.1 Allergy status to other antibiotic agents; Z88.8 Allergy status to other drugs, medicaments and biological substances; Z79.899 Other long term (current) drug therapy; Z79.82 Long term (current) use of aspirin; Z98.890 Other specified postprocedural states; W18.30XA Fall on same level, unspecified, initial encounter; Y93.89 Activity, other specified; Y92.89 Other specified places as the place of occurrence of the external cause; Y99.8 Other external cause status